=== PATIENT | male | born 1940 | race Caucasian/White ===

== ENCOUNTER 2016-12-30 06:43 | Day surgery (SDC) | payer MEDICARE, OTHER ==
[~2016-12-30] VITALS: Ht 172.7 cm; Wt 104.3 kg
[~2016-12-30 06:43] MED LIST: ASPIRIN LOW DOS81 M1 PO; ATORVASTATIN CA10 MG PO; BISACODYL5 MG PO; CETIRIZINE10 MG PO; COLACE100 MG PO; CYANOCOBAL1000 MCG/M IM; GLYCOLAX3350 N1 PO; KLOR-CON SPRIN10 MEQ PO; LASIX 20 MG20 MG/TAB PO; LASIX 40 MG40 MG/TAB PO; LYRICA75 MG PO; METOPROL TAR25 MG PO; NITROSTAT0.4 MG SL; RANITIDINE150 M1 PO; ZOLPIDEM10 M1 PO
[2016-12-30 08:59] VITALS: BP 127/71
== END 2016-12-30 09:14 | disposition home or self-care (01) ==
LOC: ENDO 06:43
PROVIDERS: ATTEND Internal Medicine Gastroenterology
PROC: 0DBL8ZX Excision of Transverse Colon, Via Natural or Artificial Opening Endoscopic, Diagnostic (ICD-10-PCS; principal; 2016-12-30)
PROC: 0DBP8ZX Excision of Rectum, Via Natural or Artificial Opening Endoscopic, Diagnostic (ICD-10-PCS; 2016-12-30)
PROC: 0DBN8ZX Excision of Sigmoid Colon, Via Natural or Artificial Opening Endoscopic, Diagnostic (ICD-10-PCS; 2016-12-30)
PROC: 0DB48ZX Excision of Esophagogastric Junction, Via Natural or Artificial Opening Endoscopic, Diagnostic (ICD-10-PCS; 2016-12-30)
DX: R10.13 Epigastric pain (principal); R10.33 Periumbilical pain; K59.00 Constipation, unspecified; R13.10 Dysphagia, unspecified; R63.4 Abnormal weight loss; K64.4 Residual hemorrhoidal skin tags; K64.8 Other hemorrhoids; D12.3 Benign neoplasm of transverse colon; D12.5 Benign neoplasm of sigmoid colon; K62.1 Rectal polyp; Q39.9 Congenital malformation of esophagus, unspecified; K29.70 Gastritis, unspecified, without bleeding; K44.9 Diaphragmatic hernia without obstruction or gangrene; I48.91 Unspecified atrial fibrillation; I10 Essential (primary) hypertension; E78.00 Pure hypercholesterolemia, unspecified; Z86.73 Personal history of transient ischemic attack (TIA), and cerebral infarction without residual deficits

== ENCOUNTER 2017-10-20 06:17 | Day surgery (SDC) | payer MEDICARE, OTHER ==
[~2017-10-20] VITALS: Ht 172.7 cm; Wt 102.1 kg
[~2017-10-20 06:17] MED LIST changes: +(None)1 % OU; +ALBUTEROL SUL0.083 % IN; +GABAPENTIN100 MG PO; +OMEPRAZOLE10 MG PO; +TRAZODONE50 MG PO
[2017-10-20 08:51] VITALS: BP 168/83
== END 2017-10-20 08:53 | disposition home or self-care (01) ==
LOC: ENDO 06:17
PROVIDERS: ATTEND Internal Medicine Gastroenterology
PROC: 0DBL8ZX Excision of Transverse Colon, Via Natural or Artificial Opening Endoscopic, Diagnostic (ICD-10-PCS; principal; 2017-10-20)
PROC: 0DBN8ZX Excision of Sigmoid Colon, Via Natural or Artificial Opening Endoscopic, Diagnostic (ICD-10-PCS; 2017-10-20)
DX: K59.00 Constipation, unspecified (principal); D12.3 Benign neoplasm of transverse colon; K63.5 Polyp of colon; Q43.8 Other specified congenital malformations of intestine; K64.4 Residual hemorrhoidal skin tags; R10.13 Epigastric pain; R13.10 Dysphagia, unspecified; K44.9 Diaphragmatic hernia without obstruction or gangrene; I10 Essential (primary) hypertension; I48.91 Unspecified atrial fibrillation; E78.00 Pure hypercholesterolemia, unspecified; Z86.010 Personal history of colon polyps; Z86.73 Personal history of transient ischemic attack (TIA), and cerebral infarction without residual deficits